=== PATIENT | female | born 1990 | race Caucasian/White ===

== ENCOUNTER 2017-03-06 10:47 | Emergency (ER) | payer BC ==
[2017-03-06 11:19] VITALS: BP 121/83; PULSE 89; RESP 18; TEMP 97.8; O2SAT 100
[2017-03-06] MEDS ORDERED: ONDANSETRON 4 MG ODT BU ONE (11:38)
[2017-03-06] MEDS ORDERED: APAP/HYDROCODONE 325/5 TAB PO ONE (11:38)
[2017-03-06] MEDS ORDERED: ONDANSETRON 4 MG ODT ONE (11:40)
[2017-03-06] MEDS ORDERED: APAP/HYDROCODONE 325/5 TAB ONE (11:40)
== END 2017-03-06 13:10 | disposition home or self-care (01) ==
LOC: ED 10:47
DX: R51 Headache (principal); W01.0XXA Fall on same level from slipping, tripping and stumbling without subsequent striking against object, initial encounter; R11.2 Nausea with vomiting, unspecified; H53.149 Visual discomfort, unspecified
CPT/HCPCS: 70450; 99283

== ENCOUNTER 2017-06-23 01:10 | Emergency (ER) | payer BC ==
[2017-06-23] MEDS ORDERED: HALOPERIDOL LACTATE 5 MG/ML SOL IM ONE ×2 (01:22→01:33)
[2017-06-23] MEDS ORDERED: LORAZEPAM 2 MG/ML SOL IM ONE ×2 (01:23→01:33)
[2017-06-23] MEDS ORDERED: HALOPERIDOL LACTATE 5 MG/ML SOL ONE (01:30)
[2017-06-23] MEDS ORDERED: LORAZEPAM 2 MG/ML SOL ONE (01:30)
[2017-06-23 02:17] LABS: BASOPHILS % (AUTO) 1 % (0-3); EOSINOPHILS % (AUTO) 0 % (0-9); HEMATOCRIT 37 % (35-47); MEAN CORPUSCULAR HGB CONC 36.5 gm/dl (32.0-36.0); MEAN CORPUSCULAR VOLUME 83 fL (81-99); MONOCYTES % (AUTO) 6.8 % (0-12); NEUTROPHILS % (AUTO) 78.9 % (37-80)
[2017-06-23 02:38] LABS: ALT 22 IU/L (14-63); CALCIUM 9.2 mg/dl (8.5-10.1); GLOM FILT RATE 58 mL/min (>60); POTASSIUM 3.4 mMol/L (3.5-5.1); SODIUM 141 mMol/L (136-145); THYROID STIMULATING HORMONE 2.667 uIU/ml (0.358-3.740)
[2017-06-23 06:05] LABS: APPEARANCE,URINE SL CLOUDY; BILIRUBIN,URINE NEGATIVE (NEGATIVE); COLOR,URINE YELLOW; GLUCOSE, URINE (UA) NEGATIVE (NEGATIVE); KETONES,URINE 2+ (NEGATIVE); LEUKOCYTE ESTERASE ,URINE NEGATIVE (NEGATIVE); NITRATE,URINE POSITIVE (NEGATIVE); OCCULT BLOOD,URINE 1+ (NEG-TRACE); PH,URINE 5.5; UROBILINOGEN,URINE 0.2 (0.2-1.0 EU)
[2017-06-23 06:06] LABS: AMPHETAMINES POSITIVE (NEGATIVE); METHADONE NEGATIVE (NEGATIVE); OPIATES(OP13) NEGATIVE (NEGATIVE); OXYCODONE(OXY) NEGATIVE (NEGATIVE); PROPOXYPHENE(PPX) NEGATIVE (NEGATIVE); TRICYCLIC ANTIDEPRESSANTS NEGATIVE (NEGATIVE)
[2017-06-23 09:58] VITALS: TEMP 97.2
[2017-06-23 12:13] VITALS: RESP 18
[2017-06-23 14:19] VITALS: BP 117/74; PULSE 81; O2SAT 98
== END 2017-06-23 15:04 ==
LOC: ED 01:10
DX: R45.851 Suicidal ideations (principal); S61.512A Laceration without foreign body of left wrist, initial encounter; S61.511A Laceration without foreign body of right wrist, initial encounter
CPT/HCPCS: 99285 ×3; 80053; 80305; 80307; 81001; 84443; 84703; 85025; 86803; 87389; J1630; J2060; 36415; 96372; 99291; A6402; A6446

== ENCOUNTER 2017-11-15 07:00 | Emergency (ER) | payer SELFPAY ==
[2017-11-15 07:55] VITALS: O2SAT 100
[2017-11-15] MEDS ORDERED: KETOROLAC TROMETHAMINE 30 MG/ML SOL IV ONE (08:02)
[2017-11-15] MEDS ORDERED: KETOROLAC TROMETHAMINE 30 MG/ML SOL ONE (08:03)
[2017-11-15] MEDS ORDERED: SODIUM CHLORIDE 0.9% FLUSH 10 ML SOL IV PRN (08:09)
[2017-11-15 08:23] LABS: HEMATOCRIT 39 % (35-47); MEAN CORPUSCULAR HGB CONC 32.9 gm/dl (32.0-36.0); MEAN CORPUSCULAR VOLUME 88 fL (81-99); MONOCYTES % (AUTO) 7.5 % (0-12); NEUTROPHILS % (AUTO) 80.3 % (37-80)
[2017-11-15 08:24] LABS: BASOPHILS % (AUTO) 1 % (0-3); EOSINOPHILS % (AUTO) 1 % (0-9)
[2017-11-15 09:48] VITALS: RESP 16; TEMP 97.9
[2017-11-15] MEDS ORDERED: AMPICILLIN/SULBACTAM 3 GM PDS ONE (09:57)
[2017-11-15] MEDS ORDERED: SODIUM CHLORIDE 0.9% 1000 ML SOL IV SCH (10:00)
[2017-11-15] MEDS ORDERED: AMPICILLIN/SULBACTAM 3 GM PDS 3 GM in SODIUM CHLORIDE 0.9% 100 ML 100 ML IV SCH (10:00)
[2017-11-15 10:56] VITALS: BP 127/68; PULSE 56
== END 2017-11-15 10:53 | disposition home or self-care (01) | DRG 153 ==
LOC: ED 07:00
DX: J39.1 Other abscess of pharynx (principal)
CPT/HCPCS: 70491; 85025; 87430; 87804; 99285; J0295; J1885; Q9967

== ENCOUNTER 2018-02-09 18:50 | Emergency (ER) | payer SELFPAY ==
[2018-02-09 19:41] LABS: HEMATOCRIT 40 % (35-47); HEMOGLOBIN 13.9 gm/dl (12.0-15.5); MEAN CORPUSCULAR HEMOGLOBIN 30.4 pg (27.0-32.0); MEAN CORPUSCULAR HGB CONC 35.1 gm/dl (32.0-36.0); MEAN CORPUSCULAR VOLUME 86 fL (81-99)
[2018-02-09 20:01] LABS: ALBUMIN 3.7 gm/dl (3.4-5.0); ALKALINE PHOSPHATASE 43 IU/L (46-116); ALT 18 IU/L (14-63); AMMONIA 15 umol/L (11-32); AST 14 IU/L (15-37); BILIRUBIN,TOTAL 0.6 mg/dl (0.2-1.0); BLOOD UREA NITROGEN 10 mg/dl (7-18); CALCIUM 8.6 mg/dl (8.5-10.1); CARBON DIOXIDE 25.3 mEq/L (21-32); CHLORIDE 102 mMol/L (98-107); CREATININE 0.76 mg/dl (0.60-1.00); GLOM FILT RATE 93 mL/min (>60); GLUCOSE 82 mg/dl (74-106); MAGNESIUM 1.9 mg/dl (1.8-2.4); POTASSIUM 3.7 mMol/L (3.5-5.1); SALICYLATE < 2.8 mg/dl (2.8-30.0); SODIUM 137 mMol/L (136-145); THYROID STIMULATING HORMONE 0.268 uIU/ml (0.358-3.740); TOTAL PROTEIN 7.1 gm/dl (6.4-8.2)
[2018-02-09 20:09] LABS: BAND NEUTROPHILS % (MANUAL) 2 %; BASOPHILS % (MANUAL) 0 % (0-3); EOSINOPHILS % (MANUAL) 2 % (0-9); LYMPHOCYTES % (MANUAL) 23 % (10-50); MONOCYTES % (MANUAL) 4 % (0-12); NEUTROPHILS % (MANUAL) 69 % (37-80); NORMAL RBCS PRESENT
[2018-02-09 20:10] LABS: ACETAMINOPHEN < 2 ug/ml (10-30); ALCOHOL 0.003 gm/dl (0.000-0.08)
[2018-02-09 20:29] VITALS: RESP 18
[2018-02-09 20:29] LABS: APPEARANCE,URINE Clear; BILIRUBIN,URINE 1+ (NEGATIVE); COLOR,URINE Yellow; GLUCOSE, URINE (UA) NEGATIVE (NEGATIVE); KETONES,URINE 1+ (NEGATIVE); LEUKOCYTE ESTERASE ,URINE 1+ (NEGATIVE); NITRATE,URINE NEGATIVE (NEGATIVE); OCCULT BLOOD,URINE 1+ (NEG-TRACE); PH,URINE 5.5; UROBILINOGEN,URINE 0.2 (0.2-1.0 EU)
[2018-02-09 20:40] LABS: BACTERIA 2+ (< 1+); CRYSTALS NEGATIVE (0-3 AVE/HPF); ICTOTEST,URINE NEGATIVE (NEGATIVE); RBC,URINE 0-2 (0-3AV/HPF)
[2018-02-09 20:41] LABS: AMPHETAMINES POSITIVE (NEGATIVE); BARBITUATES NEGATIVE (NEGATIVE); BENZODIAZEPINES POSITIVE (NEGATIVE); CANNABINOL(THC) POSITIVE (NEGATIVE); COCAINE(COC) NEGATIVE (NEGATIVE); METHADONE NEGATIVE (NEGATIVE); METHAMPHETAMINES POSITIVE (NEGATIVE); OPIATES(OP13) NEGATIVE (NEGATIVE); OXYCODONE(OXY) NEGATIVE (NEGATIVE); PROPOXYPHENE(PPX) NEGATIVE (NEGATIVE); TRICYCLIC ANTIDEPRESSANTS NEGATIVE (NEGATIVE)
[2018-02-09] MEDS ORDERED: CIPROFLOXACIN HCL 500 MG TAB PO SCH (21:00)
[2018-02-09] MEDS ORDERED: CIPROFLOXACIN HCL 500 MG TAB PO ONE (21:07)
[2018-02-09] MEDS: SODIUM CHLORIDE 0.9% FLUSH 10 ML SOL IV PRN ×2 (22:00→22:43)
[2018-02-09] MEDS ORDERED: ONDANSETRON HCL 4 MG/2 ML SOL IV ONE (22:41)
[2018-02-09] MEDS ORDERED: ONDANSETRON HCL 4 MG/2 ML SOL ONE (22:41)
[2018-02-09 22:50] VITALS: BP 103/60; PULSE 62; TEMP 97.9; O2SAT 97
== END 2018-02-09 23:07 | disposition short-term general hospital (02) | DRG 918 ==
LOC: ED 18:50
DX: T42.4X2A Poisoning by benzodiazepines, intentional self-harm, initial encounter (principal); D72.829 Elevated white blood cell count, unspecified; T42.6X2A Poisoning by other antiepileptic and sedative-hypnotic drugs, intentional self-harm, initial encounter; F12.980 Cannabis use, unspecified with anxiety disorder; F41.9 Anxiety disorder, unspecified; F32.9 Major depressive disorder, single episode, unspecified; X78.9XXA Intentional self-harm by unspecified sharp object, initial encounter; R00.0 Tachycardia, unspecified
CPT/HCPCS: 36415; 80053; 80305; 80307; 81001; 82140; 83735; 84443; 84703; 85007; 85027; 93005; 96374; 99284; 99285; J2405; A9270-GY

== ENCOUNTER 2018-11-10 17:03 | Emergency (ER) | payer OTHER ==
[2018-11-10] MEDS ORDERED: SODIUM CHLORIDE 0.9% 1000ML 1,000 ML IV ONE ×2 (17:10→17:53)
[2018-11-10] MEDS ORDERED: METOCLOPRAMIDE HYDROCHLORIDE 5 MG/ML SOL ONE ×2 (17:11→18:35)
[2018-11-10] MEDS ORDERED: METOCLOPRAMIDE HYDROCHLORIDE 5 MG/ML SOL IV ONE ×2 (17:11→18:31)
[2018-11-10] MEDS ORDERED: SODIUM CHLORIDE 0.9% FLUSH 10 ML SOL IV PRN (18:28)
[2018-11-10] MEDS ORDERED: DIPHENHYDRAMINE 50 MG/ML SOL IV ONE (18:31)
[2018-11-10] MEDS ORDERED: DIPHENHYDRAMINE 50 MG/ML SOL ONE (18:35)
[2018-11-10 18:41] LABS: APPEARANCE,URINE Clear; BILIRUBIN,URINE NEGATIVE (NEGATIVE); COLOR,URINE Yellow; GLUCOSE, URINE (UA) NEGATIVE (NEGATIVE); KETONES,URINE 3+ (NEGATIVE); LEUKOCYTE ESTERASE ,URINE NEGATIVE (NEGATIVE); NITRATE,URINE NEGATIVE (NEGATIVE); OCCULT BLOOD,URINE NEGATIVE (NEG-TRACE); UROBILINOGEN,URINE 0.2 (0.2-1.0 EU)
[2018-11-10 18:54] LABS: BACTERIA TRACE (< 1+); CRYSTALS NEGATIVE (0-3 AVE/HPF); EPITHELIAL CELLS 0-2 (SQUAMOUS); RBC,URINE 0-1 (0-3AV/HPF)
[2018-11-10 19:09] VITALS: TEMP 98
[2018-11-10 19:12] VITALS: O2SAT 100
[2018-11-10 21:16] VITALS: BP 109/73; PULSE 80; RESP 18
== END 2018-11-10 19:53 | disposition home or self-care (01) | DRG 833 ==
LOC: ED 17:03
DX: O21.2 Late vomiting of pregnancy (principal); O21.0 Mild hyperemesis gravidarum; Z3A.31 31 weeks gestation of pregnancy; E86.0 Dehydration
CPT/HCPCS: 81001; 96365; 96366; 96374; 96375; 99284; 99285; J1200; J2765

== ENCOUNTER 2019-01-10 18:00 | Inpatient (IN) | payer OTHER ==
[2019-01-10] MEDS ORDERED: LACTATED RINGERS 1,000 ML IV PRN (18:25)
[2019-01-10] MEDS ORDERED: SODIUM CHLORIDE 0.9% FLUSH 10 ML SOL IV PRN (18:25)
[2019-01-10] MEDS: SODIUM CHLORIDE 0.9% FLUSH 10 ML SOL IV SCH (18:25)
[2019-01-10] MEDS ORDERED: DIPHENHYDRAMINE 50 MG/ML SOL IM PRN (18:39)
[2019-01-10] MEDS ORDERED: NALOXONE HYDROCHLORIDE 0.4 MG/ML SOL IV PRN (18:39)
[2019-01-10] MEDS ORDERED: DIPHENHYDRAMINE 25 MG CAP PO PRN (18:39)
[2019-01-10] MEDS ORDERED: HYDROXYZINE HYDROCHLORIDE 25 MG/ML SOL IM PRN (18:39)
[2019-01-10] MEDS ORDERED: LACTATED RINGERS 1,000 ML IV SCH ×2 (18:40→19:00)
[2019-01-10] MEDS ORDERED: FENTANYL 100MCG/2ML SOL ONE (18:45)
[2019-01-10] MEDS ORDERED: MORPHINE SULFATE 0.5 MG/ML SOL ONE (18:45)
[2019-01-10] MEDS ORDERED: BUPIVACAINE HCL IN DEXTROSE/PF 2 ML AMPUL IJ ONE (18:49)
[2019-01-10 19:16] LABS: BASOPHILS % (AUTO) 1 % (0-3); EOSINOPHILS % (AUTO) 0 % (0-9); HEMATOCRIT 35 % (35-47); HEMOGLOBIN 12.1 gm/dl (12.0-15.5); LYMPHOCYTES % (AUTO) 7.2 % (10-50); MEAN CORPUSCULAR HEMOGLOBIN 30.3 pg (27.0-32.0); MEAN CORPUSCULAR HGB CONC 34.3 gm/dl (32.0-36.0); MEAN CORPUSCULAR VOLUME 88 fL (81-99); MONOCYTES % (AUTO) 4.6 % (0-12); NEUTROPHILS % (AUTO) 87.2 % (37-80)
[2019-01-10] MEDS ORDERED: METHYLERGONOVINE MALEATE 0.2 MG/ML SOL IM PRN (19:30)
[2019-01-10] MEDS ORDERED: MEPIVACAINE HCL 1% MPF 30 ML/VIAL SOL INFIL PRN (19:30)
[2019-01-10] MEDS ORDERED: FENTANYL 100MCG/2ML SOL IV PRN (19:30)
[2019-01-10] MEDS ORDERED: OXYTOCIN 10000 MU/ML SOL IM PRN (19:30)
[2019-01-10] MEDS ORDERED: CARBOPROST 250 MCG/ML SOL IM PRN (19:30)
[2019-01-10] MEDS ORDERED: TEMAZEPAM 15MG 15 MG CAP PO PRN (20:20)
[2019-01-10] MEDS ORDERED: BENZOCAINE/MENTHOL 1 SPR TOP PRN (20:20)
[2019-01-10] MEDS ORDERED: BISACODYL 10 MG SUP PR PRN (20:20)
[2019-01-10] MEDS ORDERED: APAP/HYDROCODONE 1 EACH TABLET PO PRN (20:20)
[2019-01-10] MEDS ORDERED: METHYLERGONOVINE MALEATE 0.2 MG TAB PO PRN (20:20)
[2019-01-10] MEDS ORDERED: WITCH HAZEL 1 EA PAD TOP PRN (20:20)
[2019-01-10] MEDS ORDERED: FLEET ENEMA PR PRN (20:20)
[2019-01-10] MEDS ORDERED: ONDANSETRON HCL 4 MG/2 ML SOL ONE (20:40)
[2019-01-10] MEDS ORDERED: ONDANSETRON 4 MG ODT ONE (20:46)
[2019-01-10] MEDS ORDERED: ONDANSETRON 4 MG ODT BU PRN (21:00)
[2019-01-10] MEDS: ONDANSETRON HCL 4 MG/2 ML SOL IV PRN (21:35)
[2019-01-10] MEDS: SODIUM CHLORIDE 0.9% 1000ML 500 ML IV SCH (21:36)
[2019-01-10] MEDS: DOCUSATE SODIUM 100 MG SGL PO SCH (22:24)
[2019-01-10] MEDS ORDERED: PROCHLORPERAZINE EDISYLATE 5 MG/ML SOL IV PRN (23:00)
[2019-01-10] MEDS: LACTATED RINGERS with DEXTROSE 1,000 ML IV SCH (23:45)
[2019-01-11] MEDS: SODIUM CHLORIDE 0.9% FLUSH 10 ML SOL IV SCH ×2 (02:47→14:13)
[2019-01-11] MEDS: ONDANSETRON HCL 4 MG/2 ML SOL IV PRN (03:24)
[2019-01-11] MEDS ORDERED: BUPIVACAINE HCL 0.5% MPF 10 ML SOL ONE (06:06)
[2019-01-11] MEDS ORDERED: FENTANYL 100MCG/2ML SOL ONE (06:20)
[2019-01-11] MEDS ORDERED: MIDAZOLAM 2 MG/2 ML SOL ONE (06:20)
[2019-01-11] MEDS: SODIUM CHLORIDE 0.9% 1000ML 500 ML IV SCH ×2 (06:50→06:51)
[2019-01-11] MEDS: LACTATED RINGERS with DEXTROSE 1,000 ML IV SCH (09:22)
[2019-01-11] MEDS: MULTIVITAMIN2 1 EA TAB PO SCH (09:58)
[2019-01-11] MEDS: DOCUSATE SODIUM 100 MG SGL PO SCH ×2 (09:58→21:16)
[2019-01-11] MEDS: IBUPROFEN 600 MG TAB PO PRN ×2 (09:58→23:15)
[2019-01-11] MEDS: FOLIC ACID 1 MG TAB PO SCH (09:59)
[2019-01-12 07:44] VITALS: O2SAT 99
[2019-01-12] MEDS: IBUPROFEN 600 MG TAB PO PRN (07:58)
[2019-01-12] MEDS: DOCUSATE SODIUM 100 MG SGL PO SCH (08:58)
[2019-01-12] MEDS: FOLIC ACID 1 MG TAB PO SCH (08:58)
[2019-01-12] MEDS: MULTIVITAMIN2 1 EA TAB PO SCH (08:58)
[2019-01-12 12:36] VITALS: BP 139/93; PULSE 80; RESP 18; TEMP 98.1
== END 2019-01-12 12:50 | disposition home or self-care (01) | DRG 798 ==
LOC: OBSVTOIN 18:00 → OB 18:00 → UNDOADMOB 18:25 → OB 18:25
PROVIDERS: ADMIT Family Medicine; ATTEND Family Medicine
PROC: 10E0XZZ Delivery of Products of Conception, External Approach (ICD-10-PCS; principal; 2019-01-10)
PROC: 10907ZC Drainage of Amniotic Fluid, Therapeutic from Products of Conception, Via Natural or Artificial Opening (ICD-10-PCS; 2019-01-10)
PROC: 6A550ZT Pheresis of Cord Blood Stem Cells, Single (ICD-10-PCS; 2019-01-10)
PROC: 0U570ZZ Destruction of Bilateral Fallopian Tubes, Open Approach (ICD-10-PCS; 2019-01-11)
DX: O80 Encounter for full-term uncomplicated delivery (principal); Z37.0 Single live birth; O69.81X0 Labor and delivery complicated by cord around neck, without compression, not applicable or unspecified; Z3A.40 40 weeks gestation of pregnancy
CPT/HCPCS: 36415; 59025; 85018; 85025; 94760; 99001; J0780; J1200; J2250; J2274; J2405; J2590; J3010; A9270-GY